=== PATIENT | male | born 1935 | race Caucasian/White ===

== ENCOUNTER → 2016-11-01 | Outpatient (CLI) | payer OTHER, MEDICARE ==
[~2016-11-01] MED LIST: IOPAMIDOL (ISOVUE 370) 100 ML BTL IV ONE
== END ==
LOC: FIMAGING 08:30
PROVIDERS: ATTEND Physician Assistant Medical
DX: I74.3 Embolism and thrombosis of arteries of the lower extremities (principal); I74.5 Embolism and thrombosis of iliac artery; I70.0 Atherosclerosis of aorta; I77.1 Stricture of artery; I73.9 Peripheral vascular disease, unspecified; I25.10 Atherosclerotic heart disease of native coronary artery without angina pectoris; E78.5 Hyperlipidemia, unspecified; N28.1 Cyst of kidney, acquired; K57.30 Diverticulosis of large intestine without perforation or abscess without bleeding; Z87.891 Personal history of nicotine dependence
CPT/HCPCS: 75635; 93880; Q9967